=== PATIENT | male | born 1965 | race Caucasian/White ===

== ENCOUNTER → 2017-08-29 | Outpatient (CLI) | payer MEDICAID ==
[~2017-08-29] MED LIST: ACETAMINOPHEN-H1 TA1 PO; AMOXIL500 MG PO; ASPIRIN 81MG TA81 MG PO; ATORVASTATIN CA80 MG PO; CIPRO 500MG TA500 MG PO; CLOPIDOGREL75 M2 PO; EFFIENT10 M1 PO; GABAPENTIN 600600 MG PO; LISINOPRIL 5MG T5 MG PO; OXYCONTIN30 MG PO; PERCOCET 10 MG1 EACH PO
== END ==
LOC: SL 20:19
DX: G47.33 Obstructive sleep apnea (adult) (pediatric) (principal); G47.30 Sleep apnea, unspecified; I10 Essential (primary) hypertension; G47.10 Hypersomnia, unspecified; R06.83 Snoring